=== PATIENT | female | born 1995 | race Caucasian/White ===

== ENCOUNTER 2024-11-25 11:14 | Outpatient (CLI) | payer OTHER, SELFPAY | END 2024-11-25 11:15 | disposition home or self-care (01) | LOC: NFLDUCREF 11:15 | PROVIDERS: Visit Provider Family Medicine | DX: R10.11 Right upper quadrant pain (principal); R82.90 Unspecified abnormal findings in urine | CPT/HCPCS: 80053; 87086 ==